=== PATIENT | male | born 1940 | race Caucasian/White ===

== ENCOUNTER → 2019-02-20 14:03 | Outpatient (CLI) | payer MEDICARE, OTHER, SELFPAY | PROVIDERS: Family Provider Internal Medicine; PCP Internal Medicine; Visit Provider Physician Assistant | DX: L72.3 Sebaceous cyst (principal) | CPT/HCPCS: 87070; 87075; 87205 ==

== ENCOUNTER → 2019-03-31 15:49 | Outpatient (CLI) | payer MEDICARE, OTHER, SELFPAY | PROVIDERS: Family Provider Internal Medicine; PCP Internal Medicine; Visit Provider Physician Assistant | DX: L72.3 Sebaceous cyst (principal) | CPT/HCPCS: 87070; 87075; 87205 ==

== ENCOUNTER → 2019-12-23 15:03 | Outpatient (ROUT) | payer MEDICARE, OTHER, SELFPAY ==
[2019-12-23 16:00] LABS: Aspartate Aminotransferase 28 IU/L (17-59); BUN Creatinine Ratio 28.9 (6-22); Blood Urea Nitrogen 26 mg/dL (9-20); Calcium 9.6 mg/dL (8.4-10.2); Carbon Dioxide 30 mmol/L (22-32); Chloride 98 mmol/L (98-107); Cholesterol 127 mg/dL (140-199); Estimated Glomerular Filt Rate > 60.0 mL/min (>60); Glucose 193 mg/dL (80-110); HDL Cholesterol 51 mg/dL (40-60); HEMOLYSIS < 15 (0-50); LDL Cholesterol Calculated 65 mg/dL (<100); Potassium 3.9 mmol/L (3.4-5.1); Sodium 137 mmol/L (137-145); Triglycerides 55 mg/dL (35-150)
[2019-12-23 16:05] LABS: Hemoglobin A1C% w Est Avg Glu 7.2 % (4.0-6.0)
== END ==
PROVIDERS: Family Provider Internal Medicine; PCP Internal Medicine; Visit Provider Internal Medicine
DX: I10 Essential (primary) hypertension (principal); E78.2 Mixed hyperlipidemia; E11.9 Type 2 diabetes mellitus without complications
CPT/HCPCS: 80048; 80061; 83036; 84450

== ENCOUNTER → 2021-01-04 14:31 | Outpatient (ROUT) | payer MEDICARE, OTHER, SELFPAY ==
[2021-01-04 14:56] LABS: Aspartate Aminotransferase 30 IU/L (17-59); BUN Creatinine Ratio 28.2 (6-22); Blood Urea Nitrogen 24 mg/dL (9-20); Calcium 9.7 mg/dL (8.4-10.2); Carbon Dioxide 29 mmol/L (22-32); Chloride 103 mmol/L (98-107); Cholesterol 116 mg/dL (140-199); Estimated Glomerular Filt Rate > 60.0 mL/min (>60); Glucose 182 mg/dL (80-110); HDL Cholesterol 55 mg/dL (40-60); HEMOLYSIS < 15 (0-50); LDL Cholesterol Calculated 52 mg/dL (<100); Potassium 4.7 mmol/L (3.4-5.1); Sodium 135 mmol/L (137-145); Triglycerides 45 mg/dL (35-150)
[2021-01-04 15:31] LABS: Prostate Specific Antigen < 0.064 ng/mL (0.10-4.00)
== END ==
PROVIDERS: Family Provider Internal Medicine; PCP Internal Medicine; Visit Provider Internal Medicine
DX: I10 Essential (primary) hypertension (principal); E78.2 Mixed hyperlipidemia; Z85.46 Personal history of malignant neoplasm of prostate
CPT/HCPCS: 80048; 80061; 84153; 84450

== ENCOUNTER 2023-04-02 10:11 | Emergency (ER) | payer MEDICARE, OTHER, SELFPAY ==
[2023-04-02 10:13] VITALS: BP 143/66; PULSE 84; RESP 15; TEMP 36.6; O2SAT 97; BMI 20.3
--- NOTE | 2023-04-02 10:16 | DI.RAD.S_ITS ---
PROCEDURE: XR FINGER RT MIN 2V INDICATIONS: cut thumb with tablesaw TECHNIQUE: AP hand, 2 views of the 1st finger(s) acquired. COMPARISON: None. FINDINGS: Bones: Mildly displaced fracture of the lateral aspect of the distal phalangeal tuft. Soft tissues: Soft tissue swelling and injury, with small radiopaque foreign bodies. IMPRESSION: Mildly displaced fracture of the distal phalangeal tuft. There is soft tissue injury, swelling, and suspected small radiopaque foreign bodies. Dictated by: Js Smith M.D. on 04/02/2023 at 10:43 Approved by: Js Smith M.D. on 04/02/2023 at 10:44
[2023-04-02] MEDS: TET,DIPH,PERTUSS(ACELL),VAC/PF 0.5 ML SYRINGE IM (10:46)
--- NOTE | 2023-04-02 10:55 | ED.GENADULT ---
HPI - General Adult General Chief complaint: Extremity Injury, Upper Stated complaint: Cut rt thumb with saw Time Seen by Provider: 04/02/23 10:50 Source: patient Mode of arrival: Ambulatory History of Present Illness HPI narrative: Patient is an 82-year-old male who is here for evaluation of a cut that he sustained to his right thumb. He was using a table saw earlier today when he states he was not paying attention and he cut his thumb on the saw blade. He is right handed. No other injuries from the event. He covered the cut with a bandage and came to the emergency department for further evaluation. Related Data Home Medications Medication Instructions Recorded Confirmed CHOLECALCIFEROL (VITAMIN D3) 2,000 iu PO QDAY ##0 06/27/12 03/31/19 (Vitamin D) GLUC LOBO/CHONDRO LOBO A/VIT C/MN 1 cap PO QDAY ##0 06/27/12 03/31/19 (Glucosamine 1,500 Complex Cp) aspirin 81 mg tablet,delayed 81 mg PO QDAY ##0 06/27/12 03/31/19 release hydrochlorothiazide 25 mg tablet 25 mg PO QDAY ##0 06/27/12 03/31/19 lisinopril 40 mg tablet 40 mg PO QDAY ##0 06/27/12 03/31/19 metformin 1,000 mg tablet 1,000 mg PO BID ##0 06/27/12 03/31/19 simvastatin 40 mg tablet 40 mg PO QDAY ##0 06/27/12 03/31/19 Previous Rx's Medication Instructions Recorded cephalexin 500 mg capsule 500 mg PO QID 5 days #20 caps 04/02/23 Allergies Allergy/AdvReac Type Severity Reaction Status Date / Time No Known Drug Allergies Allergy Verified 04/02/23 10:18 Review of Systems Constitutional Constitutional: Reports system reviewed and no additional complaints, except as documented Musculoskeletal Musculoskeletal: Reports system reviewed and no additional complaints, except as documented Integumentary/Breasts Skin/Breast: Reports system reviewed and no additional complaints, except as documented Neurologic Neurologic: Reports system reviewed and no additional complaints, except as documented Hematologic/Lymphatic On Anticoagulants: No Patient History Social History Smoking Status: Former smoker Smoking Status: Former smoker alcohol intake frequency: holidays/special occasions only Substance Use Type: does not use Exam Initial Vital Signs Initial Vital Signs: Vital Signs Temperature 97.8 F 04/02/23 10:13 Pulse Rate 84 04/02/23 10:13 Respiratory Rate 15 04/02/23 10:13 Blood Pressure 143/66 H 04/02/23 10:13 Pulse Oximetry 97 04/02/23 10:13 Oxygen Delivery Method Room Air 04/02/23 10:13 Const General: cooperative and comfortable Cardio Pulses: radial pulses present on the right Skin Other: Very irregular skin incision the volar aspect of the right thumb distal to the IP joint. No active bleeding. Neuro General: patient alert and patient awake Sensory Exam: no sensory deficits noted Extrem Other: Patient has a very irregular laceration to the volar aspect of the right thumb that is distal to the IP joint. It does not involve the IP joint. He is able to flex and extend at the IP joint. Procedures Laceration Repair Laceration 1: Site: hand Side (If applicable): right Size (cm): 4 Description: irregular and clean Depth: simple, single layer Local Anesthetic: other anesthetic Pre-repair: wound explored, irrigated extensively and deep structures intact Skin layer closed with: nylon Skin layer suture size: 4-0 Number of sutures: 12 Technique: simple, interrupted Nerve Block Nerve Block 1: Local Anesthetic: lidocaine 1% Amount of anesthesia used (mL): 4 Side: right Nerve Blocks: digital Procedure Successful: Yes Patient Tolerated Procedure: Well Complications: none Orthopedic Splinting/Casting Injury #1: Side: right Upper Extremity Injury Location: finger Upper Extremity Immobilizer: aluminum form splint Post splinting neuro exam: intact Post splinting vascular exam: intact Placed by: Nursing Course Orders Ordered: ED Orders 04/02/23 10:16 XR finger RT min 2V Stat Discontinued Medications Bacitracin (Bacitracin Oint 0.9 Gm Pckt) 1 applic TOP NOW ONE Stop: 04/02/23 12:40 Last Admin: 04/02/23 12:41 Dose: 1 applic Documented By: MICHAEL Diphtheria/Tetanus/Acell Pertussis (Tet,Diph,Pertuss(Acell),Vac/Pf 0.5 Ml Syringe) 0.5 ml IM .ONCE ONE Stop: 04/02/23 10:19 Last Admin: 04/02/23 10:46 Dose: 0.5 ml Documented By: MICHAEL Lidocaine HCl (Lidocaine 2% Inj Sdv 5ml) 5 ml INJ INTRA-OP ONE Stop: 04/02/23 10:56 Last Admin: 04/02/23 11:01 Dose: 5 ml Documented By: MICHAEL(2) Vital Signs Vital signs: Vital Signs - 8 hr 04/02/23 10:13 04/02/23 11:32 04/02/23 12:57 Temperature 97.8 F Pulse Rate 84 74 78 Respiratory Rate 15 16 16 Blood Pressure 143/66 H 140/60 142/63 H Pulse Oximetry 97 97 97 Oxygen Delivery Method Room Air Room Air Room Air Medical Decision Making Imaging Data Extremity x-ray #1: Radiologist's Impression: PROCEDURE:? XR FINGER RT MIN 2V ? INDICATIONS:? cut thumb with tablesaw ? TECHNIQUE:? AP hand, 2 views of the 1st finger(s) acquired.? ? COMPARISON:? None. ? FINDINGS:? ? Bones:? Mildly displaced fracture of the lateral aspect of the distal phalangeal tuft. ? Soft tissues:? Soft tissue swelling and injury, with small radiopaque foreign bodies. ? IMPRESSION:? Mildly displaced fracture of the distal phalangeal tuft.? There is soft tissue injury, swelling, and suspected small radiopaque foreign bodies. MDM Narrative Medical decision making narrative: The laceration to the right thumb was closed as described above however the skin edges were very irregular. Does not involve any tendons. He does have what appears to be a small tuft fracture. There is no subungual hematoma. Given the nature of his injury he was placed on antibiotics. He was given care instructions and return precautions. Was placed in a splint. Patient expressed understanding and agreement. Discharge Plan Departure Patient Disposition: Home Clinical Impression: Finger laceration Instructions: DI for Laceration Repair -- Complex Activity Restrictions/Additional Instructions: The stitches that were placed do need to be removed in the next 7-10 days. You can go to the walk-in clinic or your primary doctor or return to the emergency department for this. I recommend that you keep the area covered with a bandage. You can put topical antibiotic ointment over the area. A prescription for oral antibiotics was sent to the pharmacy of your choice. You can wash your hands like normal. Do not soak your thumb in anything until the wound has healed. Return to the emergency department for new or worsening symptoms. Prescriptions: New cephalexin 500 mg capsule 500 mg PO QID 5 Days Qty: 20 0RF No Action simvastatin 40 MG tablet 40 mg PO QDAY Qty: 0 metformin 1,000 MG tablet 1,000 mg PO BID Qty: 0 hydrochlorothiazide 25 MG tablet 25 mg PO QDAY Qty: 0 lisinopril 40 MG tablet 40 mg PO QDAY Qty: 0 aspirin 81 MG tablet,delayed release (DR/EC) 81 mg PO QDAY Qty: 0 CHOLECALCIFEROL (VITAMIN D3) (Vitamin D) 2,000 iu PO QDAY Qty: 0 GLUC LOBO/CHONDRO LOBO A/VIT C/MN (Glucosamine 1,500 Complex Cp) 1 cap PO QDAY Qty: 0 Referrals: Jc Granger MD [Primary Care Provider] - Stand Alone Forms: Patient Portal/API
[2023-04-02] MEDS: LIDOCAINE 2% INJ SDV 5ML 5 ML INJ (11:01)
[2023-04-02 11:32] VITALS: BP 140/60; PULSE 74; RESP 16; O2SAT 97
[2023-04-02] MEDS: BACITRACIN OINT 0.9 GM PCKT 1 APPLIC TOP (12:41)
[2023-04-02 12:57] VITALS: BP 142/63; PULSE 78; RESP 16; O2SAT 97
== END 2023-04-02 12:58 | disposition home or self-care (01) ==
PROVIDERS: Emergency Provider Emergency Medicine; Family Provider Internal Medicine; PCP Family Medicine
DX: S61.011A Laceration without foreign body of right thumb without damage to nail, initial encounter (principal); W27.0XXA Contact with workbench tool, initial encounter; Z23 Encounter for immunization
CPT/HCPCS: 12002; 73140; 90471; 99283; 90715